=== PATIENT | female | born 1955 | race Caucasian/White ===

== ENCOUNTER 2019-06-02 05:19 | Inpatient (IN) ==
--- NOTE | 2019-05-31 14:57 | EKG Report ---
Test Performed on : 05/31/2019 2:46:25 PM Test Reason : PAT Blood Pressure : / mmHG Vent. Rate : 069 BPM Atrial Rate : 069 BPM P-R Int : 168 ms QRS Dur : 078 ms QT Int : 430 ms P-R-T Axes : 081 070 074 degrees QTc Int : 460 ms Normal sinus rhythm. Nonspecific ST abnormality Abnormal ECG When compared with ECG of 09-APR-2013 09:40, No significant change was found Confirmed by Simon Madison MD ([id number]) on 06/02/2019 3:26:29 PM
[2019-05-31 15:19] LABS: HEMATOCRIT 42.3 % (37.0-47.0); MCHC 33.1 g/dL (33-37); MCV 93.8 FL (81-99); MPV 12.8 FL (7.4-10.4); RBC 4.51 XMIL (4.2-5.4); WBC 9.46 X1000 (4.8-10.8)
[2019-05-31 16:07] LABS: CALCIUM 9.9 mg/dL (8.8-10.2); CREATININE 1.2 mg/dL (0.5-0.9); POTASSIUM 3.8 mmol/L (3.5-5.1)
[2019-06-02] MEDS ORDERED: LR 1,000 ML ONE (05:41)
[2019-06-02] MEDS ORDERED: HEPARIN ONE ×2 (06:33)
[2019-06-02] MEDS ORDERED: NS 2,000 ML ONE (06:33)
[2019-06-02] MEDS ORDERED: VANCOMYCIN 1 GM/NS 1 GM/250 ML IVPB ONE (06:33)
[2019-06-02] MEDS ORDERED: MARCAINE 0.25% PF/EPI 1:200,000 ONE (06:33)
[2019-06-02] MEDS ORDERED: FENTANYL ONE (06:39)
[2019-06-02] MEDS ORDERED: DIPRIVAN 1% ONE (06:39)
[2019-06-02] MEDS ORDERED: QUELICIN (DOSE) ONE (06:40)
[2019-06-02] MEDS ORDERED: ROBINUL ONE ×2 (06:40→08:32)
[2019-06-02] MEDS ORDERED: XYLOCAINE-MPF 2% ONE (06:40)
[2019-06-02] MEDS ORDERED: VERSED ONE (06:44)
[2019-06-02] MEDS ORDERED: NITROGLYCERIN 50 MG/D5W 50 MG/250 ML IV.SOLN ONE (06:52)
[2019-06-02] MEDS ORDERED: NEO-SYNEPHRINE ONE (07:11)
[2019-06-02] MEDS ORDERED: ZEMURON ONE (07:16)
[2019-06-02] MEDS ORDERED: HEPARIN (DOSE) ONE (07:36)
[2019-06-02] MEDS ORDERED: DIFLUCAN 200 MG/NS 100 ML IV ONE (08:00)
[2019-06-02] MEDS ORDERED: ZOFRAN ONE (08:32)
[2019-06-02] MEDS ORDERED: NEOSTIGMINE ONE (08:32)
[2019-06-02] MEDS: LABETALOL ONE ×2 (09:15→13:11)
--- NOTE | 2019-06-02 09:33 | OPERATIVE NOTE ---
PROCEDURE DATE: 06/02/2019 NAME OF PROCEDURE: Endovascular repair of a 5.4 cm infrarenal abdominal aortic aneurysm. SURGEON: Black Zaman MD. PLATFORM MAN: Dr. Jackson, who assisted throughout the procedure with exposure and balloon dilatation. DESCRIPTION OF PROCEDURE: Satisfactory general endotracheal anesthesia was achieved. The abdomen, groins, and proximal legs were prepped and draped in a sterile fashion. An Ioban drape was used. Prophylactic vancomycin was given and 200 mg of Diflucan was also given. We marked the lowest skin crease on the left side. I used local anesthesia with 0.25 Marcaine with epinephrine. Made a transverse incision and dissected down to the inguinal ligament. A Gelpi retractor was placed and 8000 units of heparin were given. We then exposed the common femoral just as it came out from under the inguinal ligament. We surrounded it proximally with umbilical tape and distally with a large vessel loop. We did exactly the same procedure on the other side with a transverse salazar, local anesthesia, and then dissecting down to the inguinal ligament, placing umbilical tape proximally around the common femoral and a large vessel loop distally. We then accessed the left common femoral, passed a wire and a 6-Andorran sheath. We passed our Glidewire up into the aorta. We then did the same thing on the right, placing the 6-Andorran sheath. We then decided to place the main body up the right side so we switched to a Berenstein catheter, a Freedom wire, and then put the 18-Andorran sheath up the right side. We then switched to the left, put the left 12-Andorran sheath up the left. We replaced our pigtail up the left and then shot an aortogram, marking the renals. The graft that we had chosen was a 28 graft, a 14.5 x 14. We positioned it at the base of the renals and opened the proximal end, positioning the gate to the right and anteriorly. We then passed our stephanie wire up the left side and a Berenstein catheter, and then finally was able to manipulate the wire and enter the gate. We then switched to our pigtail and twirled it. We knew we were inside the gate. We then passed our Freedom wire back up. Before we removed the pigtail, we did measure the length of the left limb and decided that a 10 cm limb was adequate, so we used a 14.5 x 10 and readvanced her sheath up to the top of the gate, and then placed our 14.5 x [address] to the gate, and then deployed it. We then finished deploying the rest of the main body down into the right iliac. We passed our aortic occlusion balloon up to the proximal end and ballooned it to flatten it out and secure it to the aortic wall. We brought the balloon back to the gate, and then passed a 9 x 6 balloon up the right side and we ballooned the gate. We then used an aortic balloon, 9 x 6-Andorran balloon at the bifurcation and then at the distal end of the limbs of the graft. We replaced our pigtail back up the right side. We shot a completion aortogram and this showed no evidence of leak. The bifurcation was adequately open. Both internal iliacs were open as well. We were satisfied with our results. We then removed our devices, clamped off the common femorals, and then closed both common femorals with a 5-0 Prolene running stitch. Upon completion, we used Ultrafoam at both closures. There both were hemostatic. Good flow was noted through the common femorals. We then proceeded to close some tissue over the artery with interrupted 3-0 Polysorb, then closed the subcutaneous fat with 2 layers of 2-0 Polysorb running. The skin was closed with a 4-0 Polysorb subcuticular stitch. Telfa and a sterile OpSite were applied. She tolerated the procedure satisfactorily. Estimated blood loss was about 150 mL. cc: Black Zaman MD
[2019-06-02] MEDS: MORPHINE ONE ×3 (09:48→13:13)
[2019-06-02] MEDS: NORCO-10 ONE ×2 (10:10→10:14)
[2019-06-02] MEDS ORDERED: NS 1,000 ML ONE (11:36)
[2019-06-02] MEDS: NS 1,000 ML IV SCH ×2 (12:40→19:31)
--- NOTE | 2019-06-02 12:43 | GENERAL SURGERY PROGRESS NOTE ---
DATE: 06/02/2019 It is 12:30. She is doing generally well. She is awake and alert. Her hemodynamics are satisfactory. Her blood pressure is slightly elevated. She has palpable pedal pulses. Her bandages are dry. She is awake and alert. The plan is to continue with usual postoperative care with good pulmonary toilet, put a nicotine patch on her. We will recheck her labs tomorrow morning and hopefully move her out of the unit at that time if all is well. cc: Black Zaman MD
[2019-06-02] MEDS ORDERED: NICODERM PATCH TD ONE (15:15)
[2019-06-02] MEDS: NICODERM PATCH TD SCH (15:32)
[2019-06-02] MEDS: DILAUDID IV PRN ×2 (17:46→21:56)
[2019-06-02] MEDS: ZOFRAN IV PRN (17:46)
[2019-06-02] MEDS: VANCOMYCIN 1 GM/NS 1 GM/250 ML IVPB IV SCH (19:20)
[2019-06-02] MEDS: LOPRESSOR PO SCH (20:26)
[2019-06-02] MEDS: ZETIA PO SCH (20:26)
[2019-06-02] MEDS: NEURONTIN PO SCH (20:26)
[2019-06-02] MEDS ORDERED: PRILOSEC PO PRN (20:31)
[2019-06-03] MEDS: NS 1,000 ML IV SCH (04:11)
[2019-06-03 06:01] LABS: BASO# 0.04 X1000 (0.0-0.2); BASO% 0.3 % (0.0-0.8); EOS# 0.52 X1000 (0.0-0.7); EOS% 4.1 % (0.0-10.0); HEMATOCRIT 39.5 % (37.0-47.0); HEMOGLOBIN 12.7 g/dL (12.0-16.0); LYMPH# 1.86 X1000 (1.2-3.4); LYMPH% 14.6 % (20.5-51.1); MCH 30.8 PG (27-31); MCHC 32.2 g/dL (33-37); MCV 95.6 FL (81-99); MONO# 1.09 X1000 (0.11-0.59); MONO% 8.6 % (1.7-9.3); MPV 12.5 FL (7.4-10.4); NEUT# 9.23 X1000 (1.4-6.5); NEUT% 72.4 % (42.2-75.2); PLT 59 X1000 (130-400); RBC 4.13 XMIL (4.2-5.4); RDW 15.3 % (11.5-14.5); WBC 12.74 X1000 (4.8-10.8)
[2019-06-03 06:28] LABS: CREATININE 1.1 mg/dL (0.5-0.9); POTASSIUM 4.3 mmol/L (3.5-5.1)
[2019-06-03] MEDS ORDERED: PRILOSEC PO PRN (07:00)
[2019-06-03] MEDS: VANCOMYCIN 1 GM/NS 1 GM/250 ML IVPB IV SCH (08:28)
[2019-06-03] MEDS: PATIENT'S OWN MED PO SCH (08:29)
[2019-06-03] MEDS: LOPRESSOR PO SCH ×2 (08:29→22:31)
[2019-06-03] MEDS: NICODERM PATCH TD SCH (08:29)
[2019-06-03] MEDS: HYDROCHLOROTHIAZIDE PO SCH (08:30)
[2019-06-03] MEDS: AVAPRO PO SCH (08:30)
[2019-06-03] MEDS ORDERED: NS 1,000 ML IV SCH (09:15)
--- NOTE | 2019-06-03 09:26 | GENERAL SURGERY PROGRESS NOTE ---
DATE: 06/03/2019 SUBJECTIVE: She is postop day 1 after endovascular aneurysm repair. OBJECTIVE: She is afebrile. Heart rate is 71, blood pressure is 163/66. She is awake and alert with no distress. Her bandages are dry. Her feet are warm. LABORATORY DATA: Shows a white count of 12,700, hemoglobin 12.7, hematocrit 39.5, potassium 4.3, BUN 21, creatinine 1.1. PLAN: The plan is to give her solid food today, transfer her out to a regular room, and hopefully discharge her by tomorrow if everything continues well. cc: Black Zaman MD
[2019-06-03] MEDS: ZOFRAN IV PRN ×2 (14:38→22:35)
[2019-06-03] MEDS: NORCO-10 PO PRN ×2 (14:38→20:11)
[2019-06-03] MEDS: NEURONTIN PO SCH (22:30)
[2019-06-03] MEDS: ZETIA PO SCH (22:30)
[2019-06-03] MEDS: DILAUDID IV PRN (22:35)
[2019-06-04] MEDS: NORCO-10 PO PRN ×2 (00:08→08:55)
[2019-06-04 07:51] VITALS: BP 158/56
--- NOTE | 2019-06-04 08:12 | GENERAL SURGERY PROGRESS NOTE ---
DATE: 06/04/2019 SUBJECTIVE: She is postop day 2 after endovascular aneurysm repair. OBJECTIVE: Temperature is 99.1 degrees, heart rate 73, blood pressure 143/56. She has taken p.o. intake satisfactorily. Her wounds look fine. PLAN: The plan is to discharge her today. She will resume her usual home medicines. We discussed wound care. She is instructed not to smoke. She will return to the office in a week for re-evaluation. cc: Black Zaman MD
[2019-06-04] MEDS: LOPRESSOR PO SCH (08:54)
[2019-06-04] MEDS: AVAPRO PO SCH (08:54)
[2019-06-04] MEDS: ZOFRAN IV PRN (08:54)
[2019-06-04] MEDS: HYDROCHLOROTHIAZIDE PO SCH (08:54)
[2019-06-04] MEDS: PATIENT'S OWN MED PO SCH (08:55)
[2019-06-04] MEDS: NICODERM PATCH TD SCH (08:55)
--- NOTE | 2019-06-08 15:16 | DISCHARGE SUMMARY ---
ADMISSION DATE: 06/02/2019 DISCHARGE DATE: 06/04/2019 PRIMARY DISCHARGE DIAGNOSES: 5.4 cm infrarenal abdominal aortic aneurysm with back pain. PRIMARY PROCEDURE: Endovascular repair of 5.4 cm infrarenal abdominal aortic aneurysm. HISTORY: This is a 63-year-old who was recently discovered to have a large aneurysm. She has back pain and due to the uncertainty of the cause of the back pain, we have scheduled her for repair. HOSPITAL COURSE: She was admitted on the , and underwent the endovascular repair on the . Postoperatively, she did generally well. We gave her solid food on the first postoperative day and transferred out of the unit to a regular room. Her hemodynamics were stable. The following day 06/03, T-max was 99 degrees. Hemodynamics were good. She was taking p.o. satisfactorily. Her wounds were fine. It was felt she could be discharged home. We discussed wound care activity. She will return to the office in a week for follow -up. cc: Black Zaman MD
== END 2019-06-04 10:51 | disposition home or self-care (01) | DRG 269 ==
LOC: SURHOLD 05:19 → ICU 12:36 → 4N 06-03 17:15
PROVIDERS: ADMIT Surgery; ATTEND Surgery